=== PATIENT | male | born 1990 | race Two or more races ===

== ENCOUNTER 2024-01-27 06:34 | Day surgery (SDC) | payer OTHER ==
[~2024-01-27] VITALS: Ht 182.9 cm; Wt 67.6 kg
[~2024-01-27 06:34] MED LIST: SODIUM CHLORIDE 0.9% 1,000 ML ONE
[2024-01-27] MEDS ORDERED: FLUT1BLS23 IH (06:49)
[2024-01-27] MEDS: SODIUM CHLORIDE 0.9% 1,000 ML IV ONE (07:33)
[2024-01-27] MEDS ORDERED: FentaNYL CITRATE PF 100 MCG/2 ML VIAL ONE (07:50)
[2024-01-27] MEDS ORDERED: MIDAZOLAM HCL 2 MG/2 ML VIAL ONE (07:50)
[2024-01-27 09:15] VITALS: PULSE 57; RESP 16; O2SAT 99
[2024-01-27] MEDS ORDERED: MethylPREDNISolone SOD SUCC 125 MG/2 ML VIAL ONE (09:51)
[2024-01-27] MEDS: MethylPREDNISolone SOD SUCC 125 MG/2 ML VIAL IVP ONE (09:53)
== END 2024-01-27 14:05 | disposition home or self-care (01) ==
LOC: SURGERY 06:34
PROVIDERS: ATTEND Internal Medicine Critical Care Medicine
DX: R05.3 Chronic cough (principal); B37.9 Candidiasis, unspecified; R04.2 Hemoptysis; J98.09 Other diseases of bronchus, not elsewhere classified; J84.10 Pulmonary fibrosis, unspecified; J98.8 Other specified respiratory disorders
CPT/HCPCS: 31623; 31624; 71045; 71250; 87015; 87070; 87101; 87206; 87220; 88108; 94640; J2250; J2919; J3010; J7030